=== PATIENT | female | born 1960 | race African-American/Black ===

== ENCOUNTER 2017-02-08 06:24 | Emergency (ER) | payer OTHER, BC ==
[~2017-02-08] VITALS: Ht 162.6 cm; Wt 86.6 kg
[2017-02-08] MEDS ORDERED: HYDROcodone/APAP 5/325MG 1 TAB TABLET PO ONE (07:00)
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
[2017-02-08] MEDS ORDERED: IBUP-1007 PO (08:28)
[2017-02-08] MEDS ORDERED: CYCL5TAB PO (08:28)
[2017-02-08 08:30] VITALS: BP 157/84
== END 2017-02-08 08:40 | disposition home or self-care (01) ==
LOC: ER 06:24
DX: S16.1XXA Strain of muscle, fascia and tendon at neck level, initial encounter (principal); M54.5 Low back pain; Z88.8 Allergy status to other drugs, medicaments and biological substances; V43.52XA Car driver injured in collision with other type car in traffic accident, initial encounter; Y93.I9 Activity, other involving external motion; Y92.488 Other paved roadways as the place of occurrence of the external cause; Y99.8 Other external cause status
CPT/HCPCS: 70450; 72125; 72131; 99284-25